=== PATIENT | male | born 1955 | race Caucasian/White ===

== ENCOUNTER 2019-02-20 05:09 | Inpatient (IN) | payer BC ==
[~2019-02-20] VITALS: Ht 185.4 cm; Wt 106.1 kg
[2019-02-20] VITALS (18 sets, daily range): BP systolic 88–141; BP diastolic 53–88
[~2019-02-20 05:09] MED LIST: CYCL10TA2 PO; HYDR-2761 PO
--- NOTE | 2019-02-20 05:49 | RAD ---
Exam: Chest one view INDICATION: Chest pain TECHNIQUE: Frontal view of the chest Comparisons: 12/29/2015 FINDINGS: The cardiomediastinal silhouette and pulmonary vessels are within normal limits. The lung and pleural spaces are clear. IMPRESSION: No acute cardiopulmonary process. Electronically signed by: Saadia Edwards MD (02/20/2019 5:46 AM) [facility]
--- NOTE | 2019-02-20 05:52 | PHYS DOC ---
Past Medical History Past Medical History: Diabetes-Type II, High Cholesterol, Heart Disease, Hypertension, MO Additional Past Medical Histor: RENAL CELL CA, MELANOMA, BASAL CELL CA, SQUAMOUS CELL CA (BRIJESH BEARDEN DO) Past Surgical History: Knee Replacement, Other Additional Past Surgical Histo: STENT PLACEMENT, BILAT KNEE (BRIJESH BEARDEN DO) Alcohol Use: None Drug Use: None (BRIJESH BEARDEN DO) Adult General Chief Complaint Chief Complaint: CHEST PAIN-CARDIAC NATURE HPI HPI Patient is a 64-year-old male with multiple medical problems including coronary disease status post MO back in 2009. He states he had a stent placed at that time. Patient states he woke up this morning noted that his chest felt heavy. He took a 3 and 24 mg aspirin. He also states he had some labored breathing and just didn't feel right. He felt a little nauseated as well. He denies any sweats. He states this started about 4:30 AM today. He states this is not similar to his previous MO in that with that he felt like he had food poisoning.[] (BRIJESH BEARDEN DO) Review of Systems Review of Systems Constitutional: Denies fever or chills [] Eyes: Denies change in visual acuity, redness, or eye pain [] HENT: Denies nasal congestion or sore throat [] Respiratory: Denies cough or shortness of breath [] Cardiovascular: No additional information not addressed in HPI [] GI: Reports nausea[] : Denies dysuria or hematuria [] Musculoskeletal: Denies back pain or joint pain [] Integument: Denies rash or skin lesions [] Neurologic: Denies headache, focal weakness or sensory changes [] Endocrine: Denies polyuria or polydipsia [] All other systems were reviewed and found to be within normal limits, except as documented in this note. (BRIJESH BEARDEN DO) Current Medications Current Medications Current Medications Medications (Trade) Dose Ordered Sig/Lisa Start Time Stop Time Status Last Admin Dose Admin Fentanyl Citrate (Fentanyl 2ml Vial) 50 mcg 1X ONCE 02/20/19 06:00 02/20/19 06:01 DC 02/20/19 05:47 50 MCG Ondansetron HCl (Zofran) 4 mg 1X ONCE 02/20/19 06:00 02/20/19 06:01 DC 02/20/19 05:46 4 MG Sodium Chloride 1,000 ml @ 1,000 mls/hr 1X ONCE 02/20/19 06:30 02/20/19 07:29 02/20/19 06:25 1,000 MLS/HR (DAXA BRIZUELA MD) Allergies Allergies Allergies Coded Allergies Type Severity Reaction Last Updated Verified No Known Drug Allergies 12/29/15 No (DAXA BRIZUELA MD) Physical Exam Physical Exam Constitutional: Well developed, well nourished, mild to moderate distress, non- toxic appearance, appears acutely ill. [] HENT: Normocephalic, atraumatic, bilateral external ears normal, oropharynx moist, no oral exudates, nose normal. [] Eyes: PERRLA, EOMI, conjunctiva normal, no discharge. [] Neck: Normal range of motion, no tenderness, supple, no stridor. [] Cardiovascular:Heart rate regular rhythm, no murmur [] Lungs & Thorax: Bilateral breath sounds clear to auscultation [] Abdomen: Bowel sounds normal, soft, no tenderness, no masses, no pulsatile masses. [] Skin: Warm, dry, no erythema, no rash. [] Back: No tenderness, no CVA tenderness. [] Extremities: No tenderness, no cyanosis, no clubbing, ROM intact, no edema. [] Neurologic: Alert and oriented X 3, normal motor function, normal sensory function, no focal deficits noted. [] Psychologic: Extremely anxious. [] (BRIJESH BEARDEN DO) Current Patient Data Vital Signs Vital Signs Date Time Temp Pulse Resp B/P (MAP) Pulse Ox O2 Delivery O2 Flow Rate FiO2 02/20/19 05:47 20 97 Room Air 02/20/19 05:10 98.2 44 114/72 (86) 98.2 (DAXA BRIZUELA MD) Lab Values Laboratory Tests Test 02/20/19 05:25 White Blood Count 8.7 x10^3/uL (4.0-11.0) Red Blood Count 4.55 x10^6/uL (4.30-5.70) Hemoglobin 13.8 g/dL (13.0-17.5) Hematocrit 40.8 % (39.0-53.0) Mean Corpuscular Volume 90 fL (79-100) Mean Corpuscular Hemoglobin 30 pg (25-35) Mean Corpuscular Hemoglobin Concent 34 g/dL (31-37) Red Cell Distribution Width 13.3 % (11.5-14.5) Platelet Count 153 x10^3/uL (140-400) Neutrophils (%) (Auto) 58 % (31-73) Lymphocytes (%) (Auto) 33 % (24-48) Monocytes (%) (Auto) 7 % (0-9) Eosinophils (%) (Auto) 1 % (0-3) Basophils (%) (Auto) 1 % (0-3) Neutrophils # (Auto) 5.1 x10^3/uL (1.8-7.7) Lymphocytes # (Auto) 2.9 x10^3/uL (1.0-4.8) Monocytes # (Auto) 0.6 x10^3/uL (0.0-1.1) Eosinophils # (Auto) 0.1 x10^3/uL (0.0-0.7) Basophils # (Auto) 0.1 x10^3/uL (0.0-0.2) Sodium Level 138 mmol/L (136-145) Potassium Level 3.8 mmol/L (3.5-5.1) Chloride Level 100 mmol/L (98-107) Carbon Dioxide Level 24 mmol/L (21-32) Anion Gap 14 (6-14) Blood Urea Nitrogen 23 mg/dL (8-26) Creatinine 1.3 mg/dL (0.7-1.3) Estimated GFR (Cockcroft-Gault) 55.6 BUN/Creatinine Ratio 18 (6-20) Glucose Level 272 mg/dL (70-99) H Calcium Level 9.0 mg/dL (8.5-10.1) Magnesium Level 1.7 mg/dL (1.8-2.4) L Total Bilirubin 0.5 mg/dL (0.2-1.0) Aspartate Amino Transferase (AST) 18 U/L (15-37) Alanine Aminotransferase (ALT) 29 U/L (16-63) Alkaline Phosphatase 101 U/L (46-116) Troponin I Quantitative 0.045 ng/mL (0.000-0.055) VN-Woj-D-Type Natriuretic Peptide 49 pg/mL (0-124) Total Protein 6.4 g/dL (6.4-8.2) Albumin 3.3 g/dL (3.4-5.0) L Albumin/Globulin Ratio 1.1 (1.0-1.7) Lipase 110 U/L (73-393) Laboratory Tests 02/20/19 05:25 Laboratory Tests 02/20/19 05:25 (DAXA BRIZUELA MD) EKG EKG EKG: Complete heart block rate of 40[] (BRIJESH BEARDEN DO) EKG Repeated EKG at 0616 showed first-degree AV block at rate of 50, ST elevation in the inferior leads with reciprocal change in anteroseptal leads, code STEMI was activated at 0617. (DAXA BRIZUELA MD) Radiology/Procedures Radiology/Procedures [] (BRIJESH BEARDEN DO) Course & Med Decision Making Course & Med Decision Making Pertinent Labs and Imaging studies reviewed. (See chart for details) [ED course: Evaluation reveals a 64-year-old male with a history coronary disease who presents with fatigue and chest pain along with some shortness of br eath this morning. His EKG looks like complete heart block. Patient states he takes carvedilol not know the dose. (BRIJESH BEARDEN DO) Course & Med Decision Making Patient care transferred to sc at 0600. EKG shows complete heart block and the patient treated with fentanyl and Zofran with improvement of his pain. Patient is awake pain and EKG was repeated and showed ST elevation in inferior leads and code STEMI was activated at [address] Dickey was consulted at 0618. Second EKG did not show complete heart block and showed first-degree AV block.Patient requiring admission for further evaluation and treatment. Discussed with Dr. Catalan who is in agreement with admission. Discussed findings and plan with patient and family, who acknowledge understanding and agreement. Patient transferred to tree tapping laborer at 0659 from Emergency Room. (DAXA BRIZUELA MD) Dragon Disclaimer Dragon Disclaimer This electronic medical record was generated, in whole or in part, using a voice recognition dictation system. (BRIJESH BEARDEN DO) Departure Departure Impression: Primary Impression: STEMI (ST elevation myocardial infarction) Additional Impressions: Uncontrolled diabetes mellitus First degree AV block Disposition: ADMITTED INPATIENT ( at 0657) Admitting Physician: HIMS (accepted admission at 0656) (DAXA BRIZUELA MD) Condition: GUARDED Referrals: NO PCP (PCP) Critical Care Time Critical care time was 60 minutes exclusive of procedures. (DAXA BRIZUELA MD) The HEART Score for CP Pts HEART Score for Chest Pain: HEART Score for Chest Pain Response (Comments) Value History Highly Suspicious [address] Depression 2 Age >45 - < 65 1 Risk Factors >3 Risk Factors or Hx CAD 2 Troponin < Normal Limit 0 Total 7 Risk Factors: Risk Factors: DM, Current or recent (<one month) smoker, HTN, HLP, family history of CAD, obesity. Risk Scores: Score 0 - 3: 2.5% MACE over next 6 weeks - Discharge Home Score 4 - 6: 20.3% MACE over next 6 weeks - Admit for Clinical Observation Score 7 - 10: 72.7% MACE over next 6 weeks - Early Invasive Strategies (DAXA BRIZUELA MD) Problem Qualifiers Primary Impression: STEMI (ST elevation myocardial infarction) Involved coronary artery: unspecified coronary artery Qualified Codes: I21.3 - ST elevation (STEMI) myocardial infarction of unspecified site Additional Impressions: Uncontrolled diabetes mellitus Diabetes mellitus type: other specified (including NATY) Glycemic state: with hyperglycemia Qualified Codes: E13.65 - Other specified diabetes mellitus with hyperglycemia BRIJESH BEARDEN DO Feb 20, 2019 05:52 DAXA BRIZUELA MD Feb 20, 2019 07:05
[2019-02-20 05:54] LABS: BASO # 0.1 x10^3/uL (0.0-0.2); BASO % 1 % (0-3); EOS # 0.1 x10^3/uL (0.0-0.7); EOS % 1 % (0-3); HEMATOCRIT 40.8 % (39.0-53.0); HEMOGLOBIN 13.8 g/dL (13.0-17.5); LYMPH # 2.9 x10^3/uL (1.0-4.8); LYMPH % 33 % (24-48); MEAN CORPUSCULAR HEMOGLOBIN 30 pg (25-35); MEAN CORPUSCULAR HGB CONC 34 g/dL (31-37); MEAN CORPUSCULAR VOLUME 90 fL (79-100); MONO # 0.6 x10^3/uL (0.0-1.1); MONO % 7 % (0-9); NEUT # 5.1 x10^3/uL (1.8-7.7); NEUT % 58 % (31-73); PLATELET COUNT 153 x10^3/uL (140-400); RED BLOOD COUNT 4.55 x10^6/uL (4.30-5.70); RED CELL DISTRIBUTION WIDTH 13.3 % (11.5-14.5); WHITE BLOOD COUNT 8.7 x10^3/uL (4.0-11.0)
[2019-02-20 05:58] LABS: CREATININE 1.3 mg/dL (0.7-1.3); GFR 55.6; POTASSIUM 3.8 mmol/L (3.5-5.1)
[2019-02-20] MEDS ORDERED: fentaNYL PF VIAL 100 MCG/2 ML VIAL IV ONE ×2 (06:00→07:30)
[2019-02-20] MEDS ORDERED: ONDANSETRON PF 4 MG/2 ML VIAL. IV ONE (06:00)
[2019-02-20 06:03] LABS: ALBUMIN 3.3 g/dL (3.4-5.0); ALBUMIN/GLOBULIN RATIO 1.1 (1.0-1.7); MAGNESIUM 1.7 mg/dL (1.8-2.4); TOTAL BILIRUBIN 0.5 mg/dL (0.2-1.0); TOTAL PROTEIN 6.4 g/dL (6.4-8.2)
[2019-02-20] MEDS ORDERED: IV NORMAL SALINE 1000ML BAG 1,000 ML IV ONE (06:30)
[2019-02-20] MEDS ORDERED: fentaNYL PF VIAL 100 MCG/2 ML VIAL ONE (06:51)
[2019-02-20] MEDS ORDERED: VERAPAMIL 5 MG/2 ML VIAL. ONE ×2 (06:52→07:00)
[2019-02-20] MEDS ORDERED: NITROGLYCERIN 200 MCG/2 ML SYRINGE FOR CATH/VASC LAB. ONE (06:52)
[2019-02-20] MEDS ORDERED: MIDAZOLAM HCL/PF 5 MG/5 ML VIAL. ONE (06:52)
[2019-02-20] MEDS ORDERED: HEPARIN for IV BOLUS 10,000 UNIT/10 ML VIAL. ONE (06:52)
[2019-02-20] MEDS ORDERED: LIDOCAINE 1% PF 2 ML VIAL. ONE (06:52)
[2019-02-20] MEDS ORDERED: IODIXANOL 320 MG/ML 100 ML VIAL. ONE (06:53)
[2019-02-20] MEDS ORDERED: ATROPINE 1 MG/10 ML DISP.SYRINGE. ONE (07:13)
[2019-02-20] MEDS ORDERED: PHENYLEPHRINE in 0.9% NACL PF 1 MG/10 ML SYRINGE. IV ONE (07:13)
[2019-02-20] MEDS ORDERED: TIROFIBAN 5MG -0.9% NS 100 ML IV ONE (07:13)
[2019-02-20] MEDS ORDERED: VERAPAMIL 5 MG/2 ML VIAL. IART ONE (07:30)
[2019-02-20] MEDS ORDERED: NITROGLYCERIN 200 MCG/2 ML SYRINGE FOR CATH/VASC LAB. IART ONE (07:30)
[2019-02-20] MEDS ORDERED: HEPARIN for IV BOLUS 10,000 UNIT/10 ML VIAL. IART ONE (07:30)
[2019-02-20] MEDS ORDERED: IODIXANOL 320 MG/ML 100 ML VIAL. IART ONE (07:30)
[2019-02-20] MEDS ORDERED: HEPARIN for IV BOLUS 10,000 UNIT/10 ML VIAL. IV ONE (07:30)
[2019-02-20] MEDS ORDERED: MIDAZOLAM HCL/PF 5 MG/5 ML VIAL. IV ONE (07:30)
[2019-02-20] MEDS ORDERED: LIDOCAINE 1% PF 2 ML VIAL. INJ ONE (07:30)
[2019-02-20] MEDS ORDERED: PRASUGREL 10 MG TABLET. ONE (07:39)
[2019-02-20] MEDS ORDERED: CONTRAST GIVEN. MC PRN (07:45)
--- NOTE | 2019-02-20 07:54 | PDOC2 ---
CARDIOLOGY CONSULT NOTE CHEIF COMPLAINT: Chest pain HPI: Jas is a 64-year-old man who comes into the hospital in the setting of nausea and chest discomfort. His initial EKG was suggestive of complete heart block. He was being admitted for further evaluation and treatment. Further evaluation approximately 30 minutes later in the emergency department revealed worsening nausea and symptoms of chest pain and a repeat EKG confirmed inferior ST elevation myocardial infarction and a Senior Living Advisor team was a properly activated. The patient has been in his usual state of health and had sudden onset of pain this morning. Initial evaluation the ER revealed a negative troponin and normal BNP. Due to the emergent nature of the situation a verbal informed consent was obtained from the patient and he was rushed to the catheter lab for treatment. PMHX: 1. Coronary artery disease status post PCI approximately 10 years ago 2. Hypertension 3. Diabetes 4. Dyslipidemia 5. Prior renal cell cancer status post ablation per patient report Patient denies any prior stroke or other comorbidities SOCHX: He lives by himself. He has a girlfriend. He quit smoking approximate 6 years ago. Denies any alcohol or illicit drug use. FAMHX: Noncontributory CURRENT MEDS: Current Medications Medications (Trade) Dose Ordered Sig/Lisa Route PRN Reason Start Time Stop Time Status Last Admin Dose Admin Fentanyl Citrate (Fentanyl 2ml Vial) 50 mcg 1X ONCE IV 02/20/19 06:00 02/20/19 06:01 DC 02/20/19 05:47 Ondansetron HCl (Zofran) 4 mg 1X ONCE IV 02/20/19 06:00 02/20/19 06:01 DC 02/20/19 05:46 Sodium Chloride 1,000 ml @ 1,000 mls/hr 1X ONCE IV 02/20/19 06:30 02/20/19 07:30 DC 02/20/19 06:25 ALLERGIES: Allergies Coded Allergies Type Severity Reaction Last Updated Verified No Known Drug Allergies 12/29/15 No ROS: Negative for 10 out of 14 systems reviewed unless otherwise mentioned above in history of present illness PHYSICAL EXAM: Vital Signs/I&O: Vital Signs Date Time Temp Pulse Resp B/P (MAP) Pulse Ox O2 Delivery O2 Flow Rate FiO2 02/20/19 06:47 49 24 132/77 (95) 98 Nasal Cannula 4.0 02/20/19 05:10 98.2 98.2 Physical Exam: Patient appeared to be in mild distress due to his nausea but otherwise did not complain of any significant chest pain He was alert and oriented 3 The patient appeared well nourished and normally developed. Head exam is unremarkable. No scleral icterus or corneal arcus noted. Neck is without jugular venous distension, thyromegaly, or carotid bruits. Carotid upstrokes are brisk bilaterally. Lungs are clear to auscultation and percussion. Cardiac exam reveals the PMI to be normally sized and situated. Rhythm is regular. First and second heart sounds normal. No murmurs, rubs or gallops. Abdominal exam reveals normal bowel sounds, no masses, no organomegaly and no aortic enlargement. Extremities are nonedematous and both femoral and pedal pulses are normal. Msk: No traumua Neuro: No focal deficits DIAGNOSTIC TESTING: EKG with inferior ST elevation and third degree heart block Lab Troponin and BNP within normal limits Hemoglobin and platelets within normal limits ASSESSMENT: 1. Inferior STEMI 2. Hypertension history 3. Three-vessel coronary artery disease 4. Acute on chronic diastolic heart failure with an LVEDP of 19 5. Dyslipidemia 6. Prior history of tobacco use PLAN: 1. Patient underwent successful stenting of the RCA. 2. Start aspirin 81mg daily, Prasugrel 10mg daily 3. We will obtain his home medication list and restart his home medications as tolerated with inclusion of a high-dose statin 4. Refer to cardiac rehabilitation through [facility] as he is followed through their desktop publishing associate Dr. Blanca. 5. Routine echo prior to discharge. 6. His rhythm is currently stabilized to sinus tachycardia with intermittent PACs. Continue to monitor for any progression to complete heart block. Thank you for this consultation. Please call with any further questions. CHRISTAL BARNES MD Feb 20, 2019 07:54
[2019-02-20] MEDS: TIROFIBAN 5MG -0.9% NS 100 ML IV PRN ×4 (08:09→20:13)
[2019-02-20] MEDS ORDERED: PRASUGREL 10 MG TABLET. PO ONE (08:15)
--- NOTE | 2019-02-20 09:00 | NUR ---
Pt to ICU from labor gang supervisor per bed. Pt A&Ox 4. Denies pain or nausea. Monitor shows SR w/1st degree AVB. Aggrestat infusing. TK Band on right wrist. VSS. Will monitor closely.
--- NOTE | 2019-02-20 10:54 | CARD ---
MR#: [id number] Date of Study: 02/20/2019 Ordering Physician: CHRISTAL BRANES, Referring Physician: CHRISTAL BARNES, Tech: RT Bessy (R) ELAINE APPROVED REPORT Technologist: RT Bessy (R) ELAINE Nurse: Vania Quan R.N. Procedure(s) performed: flouro time 7.4 minutes dose 159.47 Gycm2 contrast 98 Visipaque moderate sedation 50 minutes LHC, Coronary angiography, PCI of the RCA HISTORY The patient is a 64 year-old male with a history of : coronary artery disease, tobacco history() , hy pertension, dyslipidemia. INDICATION The indication(s) include : STEMI . [facility] Clinical Frailty [facility] Clinical Frailty Scale: Managing Well Heart Failure Heart Failure: Yes If Yes, Newly Diagnosed: Yes If Yes, HF Type: Diastolic If Yes, NYHA Class: Class III PROCEDURE NARRATIVE CLINICAL INFORMATION: 64 y.o male presenting with n/v. Initial EKG with high grade AVB. Repeat EKG revealed inferior STEMI. maintenance shop laborer activated. INFORMED CONSENT: After explaining the risks and benefits of the procedure and alternatives, informed consent was obtained. The patient was brought emergently to the cardiac catheterization lab. A timeout was performed confi rming the patient's name, date of , procedure, and site of procedure. All necessary personnel w ere wearing the appropriate protective equipment and radiation monitor devices. (See nursing notes for medications administered). ACCESS: The right wrist was sterilely prepped and draped in the usual fashion. The right wrist was infiltrat ed with 1 mL of 2% lidocaine for subcutaneous anesthesia. A 6 Kinyarwanda Terumo glide sheath was inserte d into the right radial artery without difficulty. CORONARY ANGIOGRAPHY: Right and left coronary angiography was performed using a 6Fr TIG 4.0 catheter. Left ventricular en d diastolic pressure was obtained with a JR4 catheter and pullback was performed. All catheter excha nges and advancements were performed over a guidewire. FINDINGS: HEMODYNAMICS: LVEDP 19 mm Hg No gradient on LV to aortic pullback. AO: 99/69 LEFT VENTRICULOGRAM: Deferred due to renal insufficiency history. CORONARY ANGIOGRAPHY: LM is a large caliber vessel with proximal to mid 30% stenosis. LAD is a moderate caliber vessel with a severe negative remodeling. There is a proximal 30% plaque wi th a patent mid stent with 30% ISR. The distal vessel is small in caliber. LCx is a moderate to large caliber non-dominant vessel with normal angiographic appearance. OM1 is a moderate caliber vessel with a proxmial 50% stenosis. RCA is a large caliber dominant vessel with a proximal 100% occlusion. RPDA and RPL are moderate caliber vessels with normal angiographic appearance. INTERVENTIONAL TECHNIQUE: PCI of the RCA Heparin and Tirofiban were used for anticogulation. Through a 6Fr JR4 guide catheter, a 0.014'' Prow ater wire was advanced to the distal RCA. The lesion was angioplasted with a 3.0/12 balloon and then stented with a Xience 4.0/38 MELVIN. The stent was post-dilated with a Trek 4.0/12 mm NC balloon at 18 a tm. Final angiography revealed excellent stent expansion with KATI 3 flow in the vessel and 0% residu al stenosis. The patient received Prasurel at case completion. CLOSURE: At case completion the right radial sheath was removed and a Terumo radial band was applied with 13 m l of air. COMPLICATIONS: The patient tolerated the procedure well and there were no immediate complications. KATI Flow KATI Flow (Pre-Intervention): KATI-0 KATI Flow (Post-Intervention): KATI-3 Conclusion 1. Acute inferior STEMI 2. 3V CAD 3. Successful PCI of the RCA with implantation of a 4.0/38 Xience Emily MELVIN 4. Acute on chronic diastolic HF with LVEDP of 19 mm Hg Recommendations ASA 81mg daily Prasugrel 10mg daily High dose statin therapy and cardiac rehab Follow with Dr. Blanca at [facility] (primary support technician) Signed by : Christal Barnes, Electronically Approved : 02/20/2019 10:53:48
[2019-02-20] MEDS ORDERED: 0.9 % SODIUM CHLORIDE 10 ML DISP.SYRIN. IV PRN (11:15)
[2019-02-20] MEDS ORDERED: LIDOCAINE 2% 100 MG/5 ML SYRINGE. IV PRN (11:15)
[2019-02-20] MEDS ORDERED: NITROGLYCERIN SUBLINGUAL 0.4 MG BOTTLE OF 25. SL PRN (11:15)
[2019-02-20] MEDS ORDERED: ATROPINE 0.5 MG/5 ML DISP.SYRINGE. IV PRN (11:15)
[2019-02-20] MEDS ORDERED: ACETAMINOPHEN 325 MG TABLET. PO PRN (11:15)
[2019-02-20] MEDS ORDERED: fentaNYL PF VIAL 100 MCG/2 ML VIAL IV PRN (11:15)
[2019-02-20] MEDS ORDERED: AMIODARONE 150 MG in IV DEXTROSE 5% 100ML 100 ML IV PRN (11:15)
--- NOTE | 2019-02-20 14:00 | HP ---
ADMIT DATE: 02/20/2019 CHIEF COMPLAINT: Chest pain. HISTORY OF PRESENT ILLNESS: The patient is a pleasant middle-aged white male who has previous coronary artery disease. He has history of stent and normally follows at . He was having chest pain. He was driving at , but he felt like he was going to pass out. He stopped in our Emergency Room where he was noted to be having an acute myocardial infarction. He was also in third-degree block. He was taken emergently to the engineering lab technician. He now has a new stent. He is in the ICU where he has been examined with his present. PAST MEDICAL HISTORY: Diabetes, hypertension, renal cell carcinoma, melanoma, basal cell carcinoma, squamous cell carcinoma, coronary artery disease, previous cardiac stents, hypertension, myocardial infarction, knee replacement. ALLERGIES: None. FAMILY HISTORY: Coronary artery disease. SOCIAL HISTORY: Does not drink, smoke or take drugs. He is retired. MEDICATIONS: Reviewed, please refer to the MRAD. REVIEW OF SYSTEMS: GENERAL: No history of weight change, weakness or fevers. SKIN: No bruising, hair changes or rashes. EYES: No blurred, double or loss of vision. NOSE AND THROAT: No history of nosebleeds, hoarseness or sore throat. HEART: No history of palpitations, chest pain or shortness of breath on exertion. LUNGS: Denies cough, hemoptysis, wheezing or shortness of breath. GASTROINTESTINAL: Denies changes in appetite, nausea, vomiting, diarrhea or constipation. GENITOURINARY: No history of frequency, urgency, hesitancy or nocturia. NEUROLOGIC: Denies history of numbness, tingling, tremor or weakness. PSYCHIATRIC: No history of panic, anxiety or depression. ENDOCRINE: No history of heat or cold intolerance, polyuria or polydipsia. EXTREMITIES: Denies muscle weakness, joint pain, pain on walking or stiffness. PHYSICAL EXAMINATION: VITALS: Within normal limits and are stable. GENERAL: No apparent distress. Alert and oriented. HEENT: Normal cephalic atraumatic, external auditory canals are patent. EYES: Extraocular muscles are intact, pupils are equally round and reactive to light and accommodation. MUSKULOSKELETAL: Well developed, well nourished, good range of motion. ENDOCRINE: No thyromegaly was palpated. LYMPHATICS: No cervical chain or axillary nodes were noted. HEMATOPOIETIC: No bruising. NECK: Supple, no JVD, no thyromegaly was noted. LUNGS: Clear to auscultation in all lung oguld without rhonchi or wheezing. HEART: RRR, S1, S2 present. Peripheral pulses intact, no obvious murmurs were noted. ABDOMEN: Soft, nontender. Positive bowel sounds no organomegaly, normal bowel sounds. EXTREMITIES: Without any cyanosis, clubbing, or edema. Pedal pulses intact, Homans sign is negative. NEUROLOGIC: Normal speech, normal tone. A & O x 3, moves all extremities, no obvious focal deficits. PSYCHIATRIC: Normal affect, normal mood. Stable. SKIN: No ulcerations or rashes, good skin turgor, no jaundice. VASCULAR: Good capillary refill, neurovascular bundle appears to be intact. LABORATORY DATA: Troponin is 0.045 on the initial draw, now it is up to 28.5. ASSESSMENT AND PLAN: Acute myocardial infarction with status post cardiac catheterization emergently. We are going to monitor him in the ICU. He is on antiplatelet drugs. Continue his home drugs which include statins, MARYLOU inhibitors, beta-blockade, p.r.n. nitro. DVT prophylaxis. Full code. Prognosis long-term guarded. This is a critically ill patient. JANIS PADRON DO DR: MIKAELA/eulalio JOB#: [id number] / [id number]
[2019-02-20] MEDS: glyBURIDE 5 MG TABLET PO SCH (14:47)
[2019-02-20] MEDS ORDERED: ATORVASTATIN CALCIUM 20 MG TABLET PO SCH (21:00)
[2019-02-21] VITALS (13 sets, daily range): BP systolic 102–140; BP diastolic 58–82
[2019-02-21 05:34] LABS: CALCIUM 8.4 mg/dL (8.5-10.1); CREATININE 0.8 mg/dL (0.7-1.3); DIRECT BILIRUBIN 0.1 mg/dL (0.0-0.2); GFR 97.3; POTASSIUM 3.3 mmol/L (3.5-5.1); TOTAL BILIRUBIN 0.4 mg/dL (0.2-1.0); TOTAL PROTEIN 6.5 g/dL (6.4-8.2)
[2019-02-21 05:42] LABS: CHOLESTEROL/HDL RATIO 3.4
--- NOTE | 2019-02-21 06:32 | EKG ---
[facility] [address] [place] [address] Test Date: 2019-02-20 Test Time: 05:18:06 Pat Name: JEAN ALVAREZ Department: Room: Gender: M Data Entry Email Processor: : 1955 Requested By: BRIJESH BEARDEN Order Number: [id number] Reading MD: Measurements Intervals [place] Rate: 44 P: MD: QRS: 111 QRSD: 90 T: 119 QT: 444 QTc: 379 Interpretive Statements IRREGULAR RHYTHM, NO P-WAVE FOUND ABNORMAL RIGHT AXIS DEVIATION RVH WITH REPOLARIZATION ABNORMALITY QRS(T) CONTOUR ABNORMALITY CONSIDER INFERIOR MYOCARDIAL DAMAGE ABNORMAL ECG RI6.01 No previous ECG available for comparison
--- NOTE | 2019-02-21 06:33 | EKG ---
[facility] [address] [place] [address] Test Date: 2019-02-20 Test Time: 06:16:52 Pat Name: JEAN ALVAREZ Department: Room: 112 1 Gender: M Hand Tube Bender: : 1955 Requested By: CHRISTAL BARNES Order Number: [id number] Reading MD: Measurements Intervals [place] Rate: 50 P: [place]: QRS: 99 QRSD: 94 T: 118 QT: 438 QTc: 398 Interpretive Statements IRREGULAR RHYTHM, NO P-WAVE FOUND RIGHTWARD AXIS CONSIDER RIGHT VENTRICULAR HYPERTROPHY QRS(T) CONTOUR ABNORMALITY CONSIDER ANTEROSEPTAL MYOCARDIAL DAMAGE CONSIDER INFERIOR MYOCARDIAL DAMAGE ST ABNORMALITY, POSSIBLE HIGH LATERAL SUBENDOCARDIAL INJURY ABNORMAL ECG RI6.01 No previous ECG available for comparison
[2019-02-21] MEDS ORDERED: PRASUGREL 10 MG TABLET. PO SCH (08:00)
[2019-02-21] MEDS ORDERED: ASPIRIN ENTERIC COATED 81 MG TABLET.DR. PO SCH (08:00)
[2019-02-21] MEDS: glyBURIDE 5 MG TABLET PO SCH (08:12)
--- NOTE | 2019-02-21 11:55 | PDOC ---
LENA MORALES STRATEGIC INSIGHTS LEAD 02/21/19 1155: CARDIO Progress Notes Date and Time Date of Service 02/21/19 Time of Evaluation 1140 Subjective Subjective: No Chest Pain, No shortness of breath, No Palpitations, No Dizziness Vitals Vitals Vital Signs Date Time Temp Pulse Resp B/P (MAP) Pulse Ox O2 Delivery O2 Flow Rate FiO2 02/21/19 09:00 72 16 116/76 (89) Room Air 02/21/19 07:00 97.5 93 97.5 02/20/19 16:00 3.0 Weight Weight [ ] Input and Output Intake and Output Intake and Output 02/21/19 07:00 Intake Total 3088.18 ml Output Total 3600 ml Balance -511.82 ml Intake Oral 1620 ml IV Total 167.18 ml Other 1301 ml Output Urine Total 3600 ml Laboratory Labs Laboratory Tests Test 02/20/19 13:35 02/20/19 23:15 02/21/19 04:30 Troponin I Quantitative 30.114 ng/mL (0.000-0.055) Glucose (Fingerstick) 124 mg/dL (70-99) Sodium Level 143 mmol/L (136-145) Potassium Level 3.3 mmol/L (3.5-5.1) Chloride Level 106 mmol/L (98-107) Carbon Dioxide Level 31 mmol/L (21-32) Anion Gap 6 (6-14) Blood Urea Nitrogen 11 mg/dL (8-26) Creatinine 0.8 mg/dL (0.7-1.3) Estimated GFR (Cockcroft-Gault) 97.3 Glucose Level 120 mg/dL (70-99) Calcium Level 8.4 mg/dL (8.5-10.1) Total Bilirubin 0.4 mg/dL (0.2-1.0) Direct Bilirubin 0.1 mg/dL (0.0-0.2) Aspartate Amino Transf (AST/SGOT) 140 U/L (15-37) Alanine Aminotransferase (ALT/SGPT) 44 U/L (16-63) Alkaline Phosphatase 79 U/L (46-116) Total Protein 6.5 g/dL (6.4-8.2) Albumin 3.0 g/dL (3.4-5.0) Triglycerides Level 139 mg/dL (0-150) Cholesterol Level 85 mg/dL (0-200) LDL Cholesterol, Calculated 32 mg/dL (0-100) VLDL Cholesterol, Calculated 28 mg/dL (0-40) Non-HDL Cholesterol Calculated 60 mg/dL (0-129) HDL Cholesterol 25 mg/dL (40-60) Cholesterol/HDL Ratio 3.4 Thyroid Stimulating Hormone (TSH) 0.509 uIU/mL (0.358-3.74) Physical Exam HEENT: Neck Supple W Full Motion Chest: Symmetric LUNGS: Clear to Auscultation Heart: S1S2, RRR Abdomen: Soft N/T Extremities: No Edema Neurology: alert, oriented, follow commands Assessment Assessment 1. STEMI 2. 3V CAD s/p PCI/MELVIN to RCA 3. Acute on chronic diastolic heart failure; appears compensated 4. Complete heart block; POA. resolved. Maintaining SR with occasional PAC's 5. Hypertension; controlled 6. Hyperlipidemia; statin 7. Diabetes, II 8. H/o renal cell CA; s/p ablation therapy Recommendations Echo to assess LV systolic function Secondary prevention measures including DAPT with ASA/Effient Add low-dose metoprolol Risk stratification modification Cardiac rehab through [facility]. May discharge later this evening if he continues to do well. Follow up with primary brick setter operator, Dr. Blanca as previously scheduled CHRISTAL BARNES MD 02/21/192030: CARDIO Progress Notes Plan Plan Patient seen and examined. Agree with above nurse practitioner note. No acute events overnight. No arrhythmias. Patient ablated well without any problems. Exam is unremarkable. Right radial arterial site is clean, dry and intact Home on aspirin and Effient. His primary cardio says been notified. He will have follow-up within the next 4-6 weeks. LENA MORALES APRN Feb 21, 2019 11:55 CHRISTAL BARNES MD Feb 21, 2019 20:31
[2019-02-21] MEDS ORDERED: POTASSIUM CHLORIDE 20 MEQ TABLET.ER. PO ONE ×2 (12:30→16:30)
[2019-02-21] MEDS ORDERED: MAGNESIUM SULFATE 2GM 50 ML IV ONE (13:00)
--- NOTE | 2019-02-21 16:30 | NUR ---
SS following for discharge planning. SS reviewed pt chart. Pt is from home and is currently on room air. SS will continue to follow for discharge planning.
[2019-02-21] MEDS ORDERED: METOPROLOL SUCC 24HR ER 25 MG TAB.ER.24H. PO ONE (16:34)
[2019-02-21] MEDS ORDERED: METOPROLOL TART IMMED RELEASE 25 MG TABLET. PO SCH ×2 (17:00→21:00)
--- NOTE | 2019-02-21 17:56 | CARD ---
MR#: [id number] Date of Study: 02/21/2019 Ordering Physician: LENA MORALES, Referring Physician: LENA MORALES, Tech: Lilo Campbell APPROVED REPORT EXAM: Two-dimensional and M-mode echocardiogram with Doppler and color Doppler. Other Information Quality : AverageHR: 75bpm INDICATION Dyspnea Chest Pain STEMI RISK FACTORS Diabetes 2D DIMENSIONS RVDd3.1 (2.9-3.5cm)Left Atrium(2D)4.2 (1.6-4.0cm) IVSd1.3 (0.7-1.1cm)Aortic Root(2D)3.4 (2.0-3.7cm) LVDd5.4 (3.9-5.9cm)LVOT Diameter2.3 (1.8-2.4cm) PWd1.2 (0.7-1.1cm)LVDs3.4 (2.5-4.0cm) FS (%) 36.8 %SV92.2 ml LVEF(%)66.1 (>50%) Aortic Valve AoV Peak Klaus.106.7cm/sAoV VTI23.5cm AO Peak GR.4.5mmHgLVOT VTI 17.78cm AO Mean GR.4mmHg Mitral Valve MV E Fejxggbv71.6cm/sMV E Peak Gr.4mmHg MV DECEL [id number] A Famivyxz53.3cm/s MV E Mean Gr.2mmHgE/A Ratio1.1 TDI Lateral E' P. V7.34cm/sMedial E' P. V7.27cm/s E/Lateral E'11.4E/Medial E'11.5 Tricuspid Valve RAP [id number] Peak Gr.17mmHg [id number] Pulmonary Vein S1 Mywhqifi31.7cm/sS2 Tmiffkos91.13cm/s D2 Axmhmyff03.1cm/sPVa [id number] LEFT VENTRICLE The left ventricle is normal size. There is moderate concentric left ventricular hypertrophy. The Eje ction Fraction is 60-65%. The left ventricular systolic function is normal and the ejection fraction is within normal range. There is normal LV segmental wall motion. Transmitral Doppler flow pattern is Grade II-pseudonormal filling dynamics. RIGHT VENTRICLE The right ventricle is normal size. There is normal right ventricular wall thickness. The right ventr icular systolic function is normal. ATRIA The left atrium size is normal. The right atrium size is normal. The interatrial septum is intact wit h no evidence for an atrial septal defect or patent foramen ovale as noted on 2-D or Doppler imaging. AORTIC VALVE The aortic valve is normal in structure and function. Doppler and Color Flow revealed no significant aortic regurgitation. There is no significant aortic valvular stenosis. MITRAL VALVE The mitral valve is normal in structure and function. There is no evidence of mitral valve prolapse. There is no mitral valve stenosis. Doppler and Color-flow revealed trace mitral regurgitation. TRICUSPID VALVE The tricuspid valve is normal in structure and function. Doppler and Color Flow revealed no tricuspid valve regurgitation noted. There is no tricuspid valve stenosis. PULMONIC VALVE The pulmonic valve is not well visualized. Doppler and Color Flow revealed no pulmonic valvular regur gitation. There is no pulmonic valvular stenosis. GREAT VESSELS The aortic root is normal in size. The IVC is normal in size and collapses >50% with inspiration. PERICARDIAL EFFUSION There is no evidence of significant pericardial effusion. Critical Notification Critical Value: No <Conclusion> The Ejection Fraction is 60-65%. The left ventricular systolic function is normal and the ejection fr action is within normal range. There is normal LV segmental wall motion. Signed by : Bob Green, Electronically Approved : 02/21/2019 17:55:20
== END 2019-02-21 18:35 | disposition home or self-care (01) | DRG 246 ==
LOC: ER 05:09 → 1 WEST ICU 06:51
PROVIDERS: ADMIT Internal Medicine; ATTEND Internal Medicine
PROC: 4A023N7 Measurement of Cardiac Sampling and Pressure, Left Heart, Percutaneous Approach (ICD-10-PCS; principal; 2019-02-20)
PROC: 027034Z Dilation of Coronary Artery, One Artery with Drug-eluting Intraluminal Device, Percutaneous Approach (ICD-10-PCS; 2019-02-20)
PROC: B2111ZZ Fluoroscopy of Multiple Coronary Arteries using Low Osmolar Contrast (ICD-10-PCS; 2019-02-20)
PROC: 3E033PZ Introduction of Platelet Inhibitor into Peripheral Vein, Percutaneous Approach (ICD-10-PCS; 2019-02-20)
DX: I21.19 ST elevation (STEMI) myocardial infarction involving other coronary artery of inferior wall (principal); I50.33 Acute on chronic diastolic (congestive) heart failure; I44.2 Atrioventricular block, complete; E11.65 Type 2 diabetes mellitus with hyperglycemia; E78.00 Pure hypercholesterolemia, unspecified; E78.5 Hyperlipidemia, unspecified; I11.0 Hypertensive heart disease with heart failure; I25.10 Atherosclerotic heart disease of native coronary artery without angina pectoris; I25.2 Old myocardial infarction; Z82.49 Family history of ischemic heart disease and other diseases of the circulatory system; Z85.528 Personal history of other malignant neoplasm of kidney; Z85.820 Personal history of malignant melanoma of skin; Z87.891 Personal history of nicotine dependence; Z95.5 Presence of coronary angioplasty implant and graft; Z96.659 Presence of unspecified artificial knee joint
CPT/HCPCS: 36415; 71045; 80048; 80053; 80061; 80076; 82962; 83690; 83735; 83880; 84443; 84484; 85025; 92941; 93005; 93306; 93458; 96374; 96375; 99152; 99153; C1725; C1769; C1874; C1887; C1892; J1265; J1644; J2250; J2405; J3010; J3475; J7030; Q9967; 99291-25; C1713; G0378; J3246